=== PATIENT | female | born 1965 | race African-American/Black ===

== ENCOUNTER → 2019-07-23 | Outpatient (CLI) | payer MEDICAID ==
[2015-03-02 23:53] VITALS: BP 117/80
[~2019-07-23] MED LIST: BUTA1CAP31 PO; CARI350T PO; L GA1CAP2; LEVE500T56 PO; LORA0.5T96 PO; MULT-245 PO; OMEP40CA45 PO; OXYC30TA21 PO; PROM25TA10 PO; TAPE100T9 PO; TRAM-48 PO; ZOLP10TA PO
--- NOTE | 2019-07-23 16:32 | RAD ---
Three-view right knee study Clinical indications: Right knee pain. Replacement 2008. FINDINGS: Total right knee arthroplasty is evident which is well aligned. No lytic process or acute fracture is seen. No significant right knee joint effusion is seen. IMPRESSION: Total right knee arthroplasty. No acute osseous abnormality. Electronically signed by: Servando Castellanos MD (07/23/2019 4:29 PM) [id number]
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
== END | disposition home or self-care (01) ==
LOC: RAD 09:29
PROVIDERS: ATTEND Family Medicine
DX: M19.071 Primary osteoarthritis, right ankle and foot (principal); M77.31 Calcaneal spur, right foot
CPT/HCPCS: 73562; 73630